=== PATIENT | female | born 1995 ===

== ENCOUNTER 2017-02-13 10:19 | Emergency (ER) | payer BC, SELFPAY ==
[2017-02-13] MEDS ORDERED: predniSONE 20 MG TAB ONE (11:05)
== END 2017-02-13 11:10 | disposition home or self-care (01) ==
LOC: MADERS 10:19
DX: J45.901 Unspecified asthma with (acute) exacerbation (principal); F32.9 Major depressive disorder, single episode, unspecified; Z79.899 Other long term (current) drug therapy
CPT/HCPCS: 99283; J7506